=== PATIENT | female | born 1990 | race Two or more races ===

== ENCOUNTER 2020-07-28 06:48 | Emergency (ER) | payer OTHER ==
[~2020-07-28] VITALS: Ht 154.9 cm; Wt 77.1 kg
[2020-07-28] MEDS ORDERED: ACETAMINOPHEN 500 MG TAB PO ONE (08:15)
[2020-07-28 08:23] VITALS: BP 130/91
== END 2020-07-28 09:08 | disposition home or self-care (01) ==
LOC: ER 06:48
DX: S09.90XA Unspecified injury of head, initial encounter (principal); W00.0XXA Fall on same level due to ice and snow, initial encounter; Y93.89 Activity, other specified; Y92.89 Other specified places as the place of occurrence of the external cause; Y99.8 Other external cause status
CPT/HCPCS: 70450

== ENCOUNTER 2020-07-29 15:43 | Emergency (ER) | payer OTHER ==
[~2020-07-29] VITALS: Ht 154.9 cm; Wt 77.1 kg
[2020-07-29] MEDS ORDERED: KETOROLAC TROMETH 60MG/2ML VIAL IM ONE (17:15)
[2020-07-29 18:04] VITALS: BP 132/67
== END 2020-07-29 18:20 | disposition home or self-care (01) ==
LOC: ER 15:43
DX: S16.1XXD Strain of muscle, fascia and tendon at neck level, subsequent encounter (principal); X58.XXXD Exposure to other specified factors, subsequent encounter
CPT/HCPCS: 96372; 99283; J1885